=== PATIENT | male | born 1960 | race American Indian/Alaskan Native ===

== ENCOUNTER 2017-03-18 17:00 | Emergency (ER) | payer MEDICAID ==
[2017-03-18 17:09] VITALS: BP 147/105
--- NOTE | 2017-03-18 18:27 | Emergency Department Report ---
Entered by NICOL MILAN, acting as scribe for NEGRA RIOS PA. ED Extremity Problem HPI - General Chief complaint: Extremity Injury, Lower Stated complaint: RIGHT FOOT PAIN Time Seen by Provider: 03/18/17 17:42 Source: patient Mode of arrival: Ambulatory Limitations: No Limitations - History of Present Illness Initial comments: 56 y/o male with a PMHx of DDD presents to the ED c/o an acute episode of chronic right heel pain that began 1 month ago, worsening 1 day ago. Reports he had screws placed in his right foot during surgery in 1996 and has continued to have pain ever since. Rates pain a 9/10 in severity, which he describes as aching in quality. Aggravated with walking, weight bearing, and palpation, and alleviated with nothing. Denies any recent right foot injuries/trauma, numbness , and tingling. Patient requests an X-ray of right foot. Allergic to hydrocodone. MD Complaint: extremity pain Onset/Timin -: month(s) Location: right, other (heel) History of Same: Yes -: Yes arthralgia (RT heel pain), No fever, No associated dyspnea, No associated chest pain Radiation: none Severity scale (0 -10): 9 Quality: aching Consistency: constant Improves with: nothing Worsens with: weight bearing, walking, palpation Associated Symptoms: denies other symptoms, arthralgias (RT heel pain). denies : chest pain, shortness of breath, fever, myalgias, rash - Related Data Previous Rx's Medication Instructions Recorded Last Taken Type oxyCODONE /ACETAMINOPHEN [Percocet 1 tab PO Q8H PRN #15 tablet 07/07/15 Unknown Rx 5/325 mg] methOCARBAMOL [Robaxin TAB] 500 mg PO BID #20 tab 08/04/15 Unknown Rx Cyclobenzaprine [Flexeril 10 MG 10 mg PO Q8H PRN #30 tablet 10/24/15 Unknown Rx TAB] Diclofenac Sodium 75 mg PO DAILY #7 tablet. 07/03/16 Unknown Rx traMADol [Ultram 50 MG tab] 50 mg PO Q6HR PRN #14 tablet 03/18/17 Unknown Rx Allergies Allergy/AdvReac Type Severity Reaction Status Date / Time hydrocodone Allergy Hives Verified 12/05/13 14:13 shellfish derived Allergy Hives Verified 08/03/15 21:57 ED Review of Systems Comment: All other systems reviewed and negative Constitutional: denies: chills, fever Eyes: denies: eye pain, eye discharge, vision change ENT: denies: ear pain, throat pain Respiratory: denies: cough, orthopnea, shortness of breath, SOB with exertion, SOB at rest, stridor, wheezing Cardiovascular: denies: chest pain, palpitations, dyspnea on exertion, orthopnea , edema, syncope, paroxysmal nocturnal dyspnea Endocrine: no symptoms reported Gastrointestinal: denies: abdominal pain, nausea, vomiting, diarrhea Genitourinary: denies: urgency, dysuria Musculoskeletal: arthralgia (RT heel pain). denies: back pain, joint swelling, myalgia Skin: denies: rash, lesions Neurological: denies: headache, weakness, numbness, paresthesias, confusion, abnormal gait, vertigo ED Past Medical Hx - Past Medical History Previous Medical History?: Yes Hx Hypertension: No Hx CVA: No Hx Heart Attack/AMI: No Hx Congestive Heart Failure: No Hx Diabetes: No Hx Deep Vein Thrombosis: No Hx Pulmonary Embolism: No Hx GERD: No Hx Liver Disease: No Hx Renal Disease: No Hx Sickle Cell Disease: No Hx Arthritis: No Hx Headaches / Migraines: No Hx Seizures: No Hx Kidney Stones: No Hx Psychiatric Treatment: No Hx Asthma: No Hx COPD: No Hx Tuberculosis: No Hx Dementia: No Hx HIV: No Additional medical history: DDD/ stenosis of back - Surgical History Past Surgical History?: Yes Hx Coronary Stent: No Hx Open Heart Surgery: No Hx Pacemaker: No Hx Internal Defibrillator: No Hx Cholecystectomy: No Hx Appendectomy: No Hx Breast Surgery: No Additional Surgical History: right foot _ortho. hernia repair - Family History Family history: no significant - Social History Smoking Status: Current Every Day Smoker Substance Use Type: Alcohol - Medications Home Medications: Home Medications Medication Instructions Recorded Confirmed Last Taken Type oxyCODONE /ACETAMINOPHEN [Percocet 1 tab PO Q8H PRN #15 tablet 07/07/15 Unknown Rx 5/325 mg] methOCARBAMOL [Robaxin TAB] 500 mg PO BID #20 tab 08/04/15 07/03/16 Unknown Rx Cyclobenzaprine [Flexeril 10 MG 10 mg PO Q8H PRN #30 tablet 10/24/15 07/03/16 Unknown Rx TAB] Diclofenac Sodium 75 mg PO DAILY #7 tablet. 07/03/16 Unknown Rx traMADol [Ultram 50 MG tab] 50 mg PO Q6HR PRN #14 tablet 03/18/17 Unknown Rx ED Physical Exam - General Limitations: No Limitations General appearance: alert, in no apparent distress - Head Head exam: Present: atraumatic, normocephalic - Eye Eye exam: Present: normal appearance Pupils: Present: normal accommodation - ENT ENT exam: Present: normal exam, mucous membranes moist, normal external ear exam - Neck Neck exam: Present: normal inspection, full ROM - Respiratory Respiratory exam: Present: normal lung sounds bilaterally. Absent: respiratory distress - Cardiovascular Cardiovascular Exam: Present: regular rate, normal rhythm. Absent: systolic murmur, diastolic murmur, rubs, gallop - GI/Abdominal GI/Abdominal exam: Present: soft, normal bowel sounds. Absent: distended - Extremities Exam Extremities exam: Present: full ROM, tenderness (RT heel area), normal capillary refill. Absent: normal inspection, pedal edema, joint swelling, calf tenderness - Expanded Lower Extremity Exam Right Hip exam: Present: normal inspection, full ROM Upper Leg exam: Present: normal inspection, full ROM Knee exam: Present: normal inspection, full ROM Lower Leg exam: Present: normal inspection, full ROM Ankle exam: Present: normal inspection, full ROM Foot/Toe exam: Present: full ROM, tenderness (RT plantar heel area), calcaneal tenderness. Absent: normal inspection, swelling, abrasion, laceration, ecchymosis, deformity, crepidus, dislocation, erythema, amputation, puncture wound, foreign body, tenderness at base of 5th metatarsal, nail avulsion, subungual hematoma Neuro vascular tendon exam: Present: no vascular compromise. Absent: pulse deficit, abnormal cap refill, motor deficit, sensory deficit, tendon deficit, extremity cold to touch, pallor, abnormal 2-point discrimination, decreased fine /light touch, foot drop, peroneal nerve deficit, significant pain with passive ROM of distal joint Gait: Positive: observed and limited by pain - Back Exam Back exam: Present: normal inspection - Neurological Exam Neurological exam: Present: alert, oriented X3 - Psychiatric Psychiatric exam: Present: normal affect, normal mood - Skin Skin exam: Present: warm, dry, intact, normal color. Absent: rash ED Course Vital Signs 03/18/17 17:06 Temperature 98.6 F Pulse Rate 91 H Respiratory 18 Rate Blood Pressure 147/105 O2 Sat by Pulse 95 Oximetry ED Medical Decision Making - Radiology Data Radiology results: image reviewed interpreted by me: keraware in place. small heel spur seen on XR. VSS and NAD at this time. ED Disposition Clinical Impression: Heel spur, Plantar fasciitis of right foot Disposition: DC- TO HOME OR SELFCARE Is pt being admited?: No Does the pt Need Aspirin: No Condition: Good Instructions: Plantar Fasciitis (ED) Prescriptions: traMADol [Ultram 50 MG tab] 50 mg PO Q6HR PRN #14 tablet PRN Reason: Pain Referrals: PRIMARY CARE, [Primary Care Provider] - 3-5 Days KATELIN KUMAR MD [Staff Physician] - 3-5 Days Time of Disposition: 18:27 This documentation as recorded by the KAYLI burnett JASMINE,accurately reflects the service I personally performed and the decisions made by , NEGRA RIOS PA.
--- NOTE | 2017-03-18 19:31 | XRay Report ---
FINAL REPORT EXAM: XR FOOT 3+V RT HISTORY: foot pain TECHNIQUE: 3 views of the right foot PRIORS: None. FINDINGS: There is hardware fixing a previous calcaneal fracture. The bones are normally aligned and diffusely demineralized. The joint spaces are well-preserved. There is no evidence of acute fracture. The soft tissues are unremarkable. IMPRESSION: No evidence of acute fracture or subluxation. Previous ORIF of the right calcaneus
== END 2017-03-18 18:43 | disposition home or self-care (01) ==
LOC: ED 17:00
DX: M72.2 Plantar fascial fibromatosis (principal); M77.8 Other enthesopathies, not elsewhere classified; Z91.013 Allergy to seafood; Z88.8 Allergy status to other drugs, medicaments and biological substances
CPT/HCPCS: 99283